=== PATIENT | female | born 1960 | race Caucasian/White ===

== ENCOUNTER 2019-04-30 15:16 | Emergency (ER) | payer MEDICAID ==
[~2019-04-30] VITALS: Ht 152.4 cm; Wt 49.9 kg
[2019-04-30 15:23] VITALS: BP_SYST 130
--- NOTE | 2019-04-30 15:56 | NUR ---
Patient to ER bed 06 for evaluation. Side rails up.
--- NOTE | 2019-04-30 16:00 | NUR ---
ER at bedside examining patient.
--- NOTE | 2019-04-30 16:05 | NUR ---
Patient transported to radiology via gurney, accompanied by sterilisation technician.
--- NOTE | 2019-04-30 16:15 | NUR ---
Patient BIB son c/o diarrhea x4 days was on antibiotic for recently diagnosed UTI. Patient has frequency and pain on urination. Patient Korean speaking. Patient AAOX4 and has steady gait. Patient has history of left kidney transplant in 2013. Will continue to monitor.
[2019-04-30 16:37] LABS: HEMATOCRIT 37.4 % (36-48); HEMOGLOBIN 12.3 g/dL (12.0-16.0); MEAN CORPUSCULAR HEMOGLOBIN 31 pg (27-31); MEAN CORPUSCULAR HGB CONC 33 % (32-36); MEAN CORPUSCULAR VOLUME 95 fL (79.0-98.0); PLATELET COUNT (AUTO) 173 K/uL (130-430); RED BLOOD CELL COUNT(AUTO) 3.95 MIL/uL (4.2-6.2); RED CELL DISTRIBUTION WIDTH 13.6 % (9.0-15.0); WHITE BLOOD COUNT (AUTO) 18.5 K/uL (4.8-10.8)
[2019-04-30 16:43] LABS: CALCIUM 9.1 mg/dL (8.4-11.0); CREATININE 0.77 mg/dL (0.55-1.30); POTASSIUM 3.1 mmol/L (3.5-5.1)
[2019-04-30 16:48] LABS: INR 1.1 (0.8-1.2); PROTHROMBIN TIME 11.5 SECS (9.5-12.5); TOTAL BILIRUBIN 0.4 mg/dL (0.0-1.0)
--- NOTE | 2019-04-30 17:00 | NUR ---
patient in bed, resting. no s/s of acute distress noted. will continue to monitor.
[2019-04-30] MEDS ORDERED: POTASSIUM CHLORIDE 40 MEQ in NS 250 ML IV ONE (17:15)
--- NOTE | 2019-04-30 17:20 | NUR ---
patient up to use restroom, steady gait.
[2019-04-30 17:53] LABS: BILIRUBIN,URINE NEGATIVE (NEGATIVE); CLARITY/URINE CLEAR (CLEAR); GLUCOSE,URINE NEGATIVE (NEGATIVE); KETONES,URINE NEGATIVE (NEGATIVE); LEUKOCYTE ESTERASE ,URINE 1+ (NEGATIVE); NITRITE, URINE NEGATIVE (NEGATIVE); PH,URINE 6.5 (5.0-8.0); PROTEIN URINE NEGATIVE (NEGATIVE); UROBILINOGEN,URINE 0.2 (0.2-1.0)
[2019-04-30 17:59] LABS: BLOOD, URINE TRACE (NEGATIVE); COLOR,URINE STRAW (YELLOW)
[2019-04-30 18:02] LABS: BACTERIA,URINE FEW /HPF (None Seen); RBC,URINE 0-3 /HPF (0-3)
[2019-04-30 18:03] LABS: MUCUS,URINE None Seen /LPF (None Seen)
[2019-04-30] MEDS ORDERED: POTASSIUM CHLORIDE 20 MEQ/PKT PACKET PO ONE (18:15)
[2019-04-30] MEDS ORDERED: CIPROFLOXACIN HCL 500 MG TABLET PO ONE (18:15)
--- NOTE | 2019-04-30 18:21 | NUR ---
Dr. Flores changed order for potassium chloride from IV to PO. Medication was scanned, prepped and in IV Pump when physician came into room to advise of the change. Physician explained the change to the patient. patient acknowledged and verbalized understanding. Medication discarded and administered PO potassium.
[2019-04-30 18:30] VITALS: BP_SYST 133
--- NOTE | 2019-04-30 18:30 | NUR ---
Patient given written and verbal discharge instructions and verbalizes understanding. ER MD discussed with patient the results and treatment provided. Patient in stable condition. ID arm band removed. IV catheter removed intact and dressing applied, no active bleeding. Rx of cipro and pyridium given. Patient educated on pain management and to follow up with PMD. Pain Scale 0/10. Opportunity for questions provided and answered. Medication side effect fact sheet provided.
[2019-04-30 19:03] LABS: BAND % (MANUAL) 2 % (0-6); BASOPHILS % (MANUAL) 0 % (0-2); EOSINOPHILS % (MANUAL) 0 % (0-7); LYMPHOCYTES % (MANUAL) 2 % (20-46); MONOCYTES % (MANUAL) 8 % (0-11)
== END 2019-04-30 18:30 | disposition home or self-care (01) ==
LOC: SED 15:16
DX: N39.0 Urinary tract infection, site not specified (principal); I10 Essential (primary) hypertension
CPT/HCPCS: 36415; 71045; 74176; 80053; 81000; 83605; 83690; 85007; 85027; 85610; 87040; 87086; 93005; 99285; J3480; J7050

== ENCOUNTER 2019-08-17 18:16 | Emergency (ER) | payer MEDICAID ==
[~2019-08-17] VITALS: Ht 157.5 cm; Wt 66.2 kg
[2019-08-17] MEDS ORDERED: NACL 0.9% 1,000 ML IV ONE (18:24)
--- NOTE | 2019-08-17 18:25 | NUR ---
Patient to ER bed 2 to gown for evaluation. Side rails up.
--- NOTE | 2019-08-17 18:28 | NUR ---
pt arrives from home w/ c/o urinary frequency. Pt has an oral temp of 102.3. Denies pain at the moment. Pt had a left kidney transplant on 2013 and is on immunosuppresants. Pt is AAOx4. campus monitor placed. Will continue to monitor
[2019-08-17 18:29] VITALS: BP_SYST 133
[2019-08-17] MEDS ORDERED: cefTRIAXone 1 GM IVPB PREMIX 50 ML IV ONE (18:30)
[2019-08-17] MEDS ORDERED: KETOROLAC TROMETHAMINE 30 MG VIAL IVP ONE (18:30)
--- NOTE | 2019-08-17 18:30 | NUR ---
ER at bedside examining patient.
--- NOTE | 2019-08-17 18:47 | NUR ---
# 24 gauge angiocath placed to right hand. Use of asceptic technique. Opsite placed over site. Blood return noted. Blood for lab drawn from site. Flushed with 10 cc of normal saline. No evidence of infiltration noted. Patient tolerated well.
--- NOTE | 2019-08-17 18:50 | NUR ---
Rocephin IV currently infusing per MD order. Blood cx priorly drawn
--- NOTE | 2019-08-17 18:52 | NUR ---
UA collected and sent to the lab
--- NOTE | 2019-08-17 19:10 | NUR ---
care endorsed to Suraj GRAHAM. pt is in stable condition
--- NOTE | 2019-08-17 19:16 | NUR ---
received report and pt is in gurney, VSS, Alert and oriented. Communicates needs well.
[2019-08-17 19:24] LABS: BILIRUBIN,URINE NEGATIVE (NEGATIVE); BLOOD, URINE 2+ (NEGATIVE); CLARITY/URINE CLOUDY (CLEAR); COLOR,URINE ORANGE (YELLOW); GLUCOSE,URINE NEGATIVE (NEGATIVE); KETONES,URINE NEGATIVE (NEGATIVE); LEUKOCYTE ESTERASE ,URINE 3+ (NEGATIVE); NITRITE, URINE POSITIVE (NEGATIVE); PH,URINE 5.5 (5.0-8.0); PROTEIN URINE 3+ (NEGATIVE)
[2019-08-17 19:30] LABS: BACTERIA,URINE MODERATE /HPF (None Seen); MUCUS,URINE None Seen /LPF (None Seen); RBC,URINE 20-50 /HPF (0-3); WBC,URINE >100 /HPF (0-3)
[2019-08-17 19:54] LABS: HEMATOCRIT 33.5 % (36-48); MEAN CORPUSCULAR HEMOGLOBIN 31 pg (27-31); MEAN CORPUSCULAR HGB CONC 33 % (32-36); MEAN CORPUSCULAR VOLUME 94 fL (79.0-98.0); PLATELET COUNT (AUTO) 153 K/uL (130-430); RED BLOOD CELL COUNT(AUTO) 3.56 MIL/uL (4.2-6.2); RED CELL DISTRIBUTION WIDTH 13.1 % (9.0-15.0); WHITE BLOOD COUNT (AUTO) 18.4 K/uL (4.8-10.8)
[2019-08-17 20:00] LABS: CALCIUM 7.9 mg/dL (8.4-11.0); CREATININE 0.64 mg/dL (0.55-1.30); POTASSIUM 3.3 mmol/L (3.5-5.1)
[2019-08-17 20:05] LABS: ALBUMIN 2.9 g/dL (3.4-4.8); TOTAL BILIRUBIN 0.4 mg/dL (0.0-1.0)
[2019-08-17 20:17] LABS: ATYPICAL LYMPHOCYTES % 0 % (0-0); BAND % (MANUAL) 16 % (0-6); BASOPHILS % (MANUAL) 0 % (0-2); EOSINOPHILS % (MANUAL) 0 % (0-7); LYMPHOCYTES % (MANUAL) 5 % (20-46); MONOCYTES % (MANUAL) 12 % (0-11)
--- NOTE | 2019-08-17 21:32 | NUR ---
PT IS REQUESTING TO SIGN OUT AMA. STATES THAT SHE WILL TAKE ANTIBIOTICS AT HOME. PROVIDER MADE AWARE.
--- NOTE | 2019-08-17 22:02 | NUR ---
Patient given written and verbal discharge instructions and verbalizes understanding. ER MD GAO discussed with patient the results and treatment provided. Patient in stable condition. ID arm band removed. IV catheter removed intact and dressing applied, no active bleeding. Rx of MACROBID given. Patient educated on pain management and to follow up with PMD. Pain Scale 0/10. Opportunity for questions provided and answered. Medication side effect fact sheet provided.
--- NOTE | 2019-08-17 22:03 | NUR ---
DR. SHIPLEY THE ADMITTING PROVIDER WAS MADE AWARE THAT PT SIGNED OUT AMA.
[2019-08-17 22:07] VITALS: BP_SYST 125
[2019-08-19] MEDS ORDERED: ASPI-1457 PO (09:11)
[2019-08-19] MEDS ORDERED: ROSU10TA2 PO (09:11)
[2019-08-19] MEDS ORDERED: DICY10CA13 PO (09:11)
[2019-08-19] MEDS ORDERED: TEMA30CA PO (09:11)
[2019-08-19] MEDS ORDERED: TACR1CAP PO (09:11)
[2019-08-19] MEDS ORDERED: OMEP40CA33 PO (09:11)
[2019-08-19] MEDS ORDERED: DILT180C67 PO (09:11)
[2019-08-19] MEDS ORDERED: SEN30 PO (09:11)
[2019-08-19] MEDS ORDERED: CYAN100010 PO (09:11)
[2019-08-19] MEDS ORDERED: MYCO360T3 PO (09:11)
[2019-08-19] MEDS ORDERED: PRED2.5T4 PO (09:11)
[2019-08-19] MEDS ORDERED: MAGN400T10 PO (09:11)
[2019-08-19] MEDS ORDERED: ERGO500020 PO (09:11)
[2019-08-19] MEDS ORDERED: NIFE-2 PO (09:11)
[2019-08-19] MEDS ORDERED: [UNRECOGNIZED DRUG - CODE] PO (09:11)
[2019-08-19] MEDS ORDERED: HYDR-4039 PO (09:11)
[2019-08-22] MEDS ORDERED: CEPH-568 PO (11:21)
[2019-08-22] MEDS ORDERED: AZIT250T PO (11:21)
== END 2019-08-17 22:07 | disposition left against medical advice (07) ==
LOC: SED 18:16 → UNDOADMIN 21:01 → STU 21:01
DX: N12 Tubulo-interstitial nephritis, not specified as acute or chronic (principal); I10 Essential (primary) hypertension
CPT/HCPCS: 36415; 80053; 81000; 83605; 85007; 85027; 87086; 87186; 96365; 96375; 99284; J0696; J1885; J7030